=== PATIENT | female | born 1990 | race African-American/Black ===

== ENCOUNTER 2018-06-06 17:29 | Emergency (ER) | payer SELFPAY ==
[~2018-06-06] VITALS: Ht 165.1 cm; Wt 94.0 kg
[2018-06-06] MEDS ORDERED: ACETAMINOPHEN 500MG TABLET PO ONE (19:45)
[2018-06-06] MEDS ORDERED: KETOROLAC 60MG/2ML VIAL IM ONE (20:30)
[2018-06-06] MEDS ORDERED: SULFAMETHOXAZOLE/TRIMETHOPRIM 800/160MG TABLET PO ONE (20:30)
[2018-06-06 20:41] VITALS: BP 146/87
== END 2018-06-06 20:57 | disposition home or self-care (01) ==
LOC: ER 17:29
DX: L02.214 Cutaneous abscess of groin (principal); L03.314 Cellulitis of groin
CPT/HCPCS: 96372; 99283; J1885; Z7610

== ENCOUNTER 2022-03-03 19:57 | Emergency (ER) | payer MEDICAID ==
[~2022-03-03] VITALS: Ht 175.3 cm; Wt 99.0 kg
[2022-03-03] MEDS ORDERED: KETOROLAC 60MG/2ML VIAL IM ONE (22:15)
[2022-03-03] MEDS ORDERED: IBUP-2030 MT (22:52)
[2022-03-03] MEDS ORDERED: METH-773 MT (22:52)
[2022-03-04 00:05] VITALS: BP 110/75
== END 2022-03-04 00:06 | disposition home or self-care (01) ==
LOC: ER 19:57
DX: M54.2 Cervicalgia (principal); M54.6 Pain in thoracic spine
CPT/HCPCS: 70450; 72125; 72128; 72131; 96372; 99284; J1885